=== PATIENT | male | born 1970 | race Caucasian/White ===

== ENCOUNTER 2018-08-21 20:32 | Emergency (ER) | payer OTHER ==
[~2018-08-21] VITALS: Ht 172.7 cm; Wt 99.8 kg
[2018-08-21] MEDS ORDERED: LEXAPRO 10 MG T10 M2 (20:41)
[2018-08-21] MEDS ORDERED: TRAZODONE 150150 M1 (20:41)
[2018-08-21 23:04] VITALS: BP 143/91
== END 2018-08-21 23:05 | disposition home or self-care (01) ==
LOC: ER 20:32
DX: R59.1 Generalized enlarged lymph nodes (principal); I10 Essential (primary) hypertension; Z88.8 Allergy status to other drugs, medicaments and biological substances